=== PATIENT | male | born 1960 | race Caucasian/White ===

== ENCOUNTER → 2019-12-25 | Outpatient (CLI) | payer OTHER ==
[~2019-12-25] MED LIST: ALFU10TA4 PO; CETI10TA74 PO; ESOM40CA PO; FLUT1DIS3 IH; MONT10TA80 PO; TELM80TA PO
== END ==
LOC: LAB 10:40
PROVIDERS: ATTEND Nurse Anesthetist, Certified Registered
DX: Z01.812 Encounter for preprocedural laboratory examination (principal); K22.70 Barrett's esophagus without dysplasia; Z20.828 Contact with and (suspected) exposure to other viral communicable diseases
CPT/HCPCS: U0003-CS

== ENCOUNTER → 2019-12-29 | Day surgery (SDC) | payer OTHER ==
[~2019-12-29] MED LIST changes: +ACETAMINOPHEN 325 MG TABLET PO PRN; +ALBUTEROL SULFATE 2.5 MG/3 ML NEBU. NEB PRN; +ATROPINE 0.5 MG/5 ML DISP.SYRIN. IV PRN; +IV RINGERS SOLUTION,LACTATED 1,000 ML IV SCH; +MIDAZOLAM HCL PF 2 MG/2 ML VIAL. IV PRN; +ONDANSETRON PF 4 MG/2 ML VIAL. IV PRN; +PHENOL ORAL SPRAY 177ML BOTTLE. MM PRN; +PROPOFOL 10,000 MCG/ML (20ML) VIAL IV ONE; +diphenhydrAMINE 50 MG/ML VIAL IV PRN
[2019-12-29 08:57] VITALS: BP 105/78
--- NOTE | 2019-12-31 19:09 | PATHOLOGY ---
[facility] Accession Number: [id number] . 01 Material submitted: . PART A: duodenum - DUODENAL POLYP PART B: esophagus - DISTAL ESOPAHGUS. Modifiers: distal PART C: stomach - GASTRIC POLYP . 01 Clinical history: . GAITAN'S . 02 Diagnosis: A. Duodenal biopsy, duodenal polyp: - Gastric heterotopia. . B. 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 . C. Gastric biopsy, gastric polyp: - Fundic gland polyp. (JPM:[facility] 12/31/2019) [facility] 12/31/2019 0927 Local . 02 Comment: Sections of the duodenal polyp biopsy show gastric heterotopia. There are no adenomatous changes or evidence of malignancy. . Sections of the distal esophageal biopsy reveal a segment of squamous esophageal mucosa with contiguous columnar lined mucosa showing mild chronic inflammation and intestinal metaplasia with goblet cells consistent with Gaitan's change. There is no dysplasia or evidence of malignancy. . Sections of the gastric polyp biopsy reveal polypoid segments of gastric body mucosa showing scattered cystically dilated fundic glands consistent with fundic gland polyp. There are no adenomatous changes or evidence of malignancy. (JPM:[facility] 12/31/2019) . 02 Electronically signed: . Mario Way MD, Pathologist NPI- [id number] . 01 Gross description: . A. The specimen is received in formalin, labeled "Tan Iglesias, duodenal polyp". Received is a segment of pale damon soft tissue measuring 0.3 cm in maximum dimensions. The specimen is submitted entirely in cassette A1. . B. The specimen is received in formalin, labeled "Tan Iglesias, biopsy distal esophagus". Received is a segment of pale damon soft tissue measuring 0.5 cm in maximum dimensions. The specimen is submitted entirely in cassette B1. . C. The specimen is received in formalin, labeled "Tan Iglesias, biopsy gastric polyp". Received is a segment of pale damon soft tissue measuring 0.4 cm in maximum dimensions. The specimen is submitted entirely in cassette C1. (CAA; 12/30/2019) QAC/QAC 12/30/2019 1152 Local . 02 Pathologist provided ICD-10: K20.90, K31.7, Q40.2 . 02 CPT . 288380, 808352, [id number] Specimen Comment: A courtesy copy of this report has been sent to [phone], [phone] Specimen Comment: [id number] Specimen Comment: Report sent to Specimen Comment: Report sent to / DR DAVIS Performed at: 01 [facility] [address] [facility] [address], [place] [id number] MD Neo Siddiqui MD Phone: [phone] Performed at: 02 [facility] [address] [place], [place] [id number] MD Mario [address] MD Phone: [phone]
== END | disposition home or self-care (01) ==
LOC: SURG 07:37
PROVIDERS: ATTEND Emergency Medicine
DX: K22.70 Barrett's esophagus without dysplasia (principal); K31.7 Polyp of stomach and duodenum; K44.9 Diaphragmatic hernia without obstruction or gangrene; K20.90 Esophagitis, unspecified without bleeding; I10 Essential (primary) hypertension; I49.9 Cardiac arrhythmia, unspecified; Q43.8 Other specified congenital malformations of intestine; J45.909 Unspecified asthma, uncomplicated; G47.33 Obstructive sleep apnea (adult) (pediatric); M19.90 Unspecified osteoarthritis, unspecified site; Z79.899 Other long term (current) drug therapy; Z88.8 Allergy status to other drugs, medicaments and biological substances; Z98.890 Other specified postprocedural states
CPT/HCPCS: 43239; J2704; J7120